=== PATIENT | female | born 1990 | race African-American/Black ===

== ENCOUNTER 2018-03-31 04:06 | Inpatient (IN) | payer MEDICAID ==
[~2018-03-31] VITALS: Ht 160 cm; Wt 119.7 kg
[2018-03-31] VITALS (13 sets, daily range): BP systolic 105–129; BP diastolic 45–82
[~2018-03-31 04:06] MED LIST: DENIES HOME MEDS; SENNSYP
[2018-03-31] MEDS ORDERED: LACTATED RINGER'S 1,000 ML IV SCH (04:18)
[2018-03-31 05:53] LABS: Basophils # (auto) 0 uL; Basophils % (auto) 0.2 % (0.0-2.0); Eosinophils # (auto) 0.1 uL; Eosinophils % (auto) 0.9 % (0.0-7.0); Hematocrit 35.6 % (36.0-46.0); Hemoglobin 12.1 g/dL (12.2-16.2); Lymphocytes # (auto) 1.9 uL; Lymphocytes % (auto) 25.2 % (10.0-50.0); Mean Corpuscular Hemoglobin 30.5 pg (28.0-32.0); Mean Corpuscular Volume 89.7 fL (80.0-100.0); Monocytes # (auto) 0.6 uL; Monocytes % (auto) 8.1 % (0.0-12.0); Neutrophils # (auto) 5.1 uL; Neutrophils % (auto) 65.6 % (37.0-80.0); Nucleated Red Blood Cells % 0.1 %; Platelet Count (auto) 185 10^3/uL (140-450); Red Blood Cells 3.97 10^6/uL (4.0-5.20); Red Cell Distribution Width 13.5 % (11.8-14.3); White Blood Cell 7.7 10^3/uL (4.4-10.8)
[2018-03-31 05:56] LABS: Urine Bacteria NONE SEEN /hpf (None Seen); Urine Blood Negative /uL (Negative); Urine Mucus FEW (None Seen); Urine Specific Gravity 1.026 (1.001-1.035); Urine WBC 1 /hpf (0 - 5)
[2018-03-31 06:08] LABS: INR 0.93 (0.9-1.15); Partial Thromboplastin Time 23.6 sec (23.78-33.04)
[2018-03-31 06:21] LABS: Albumin 2.5 g/dL (3.4-5.0); Calcium 8.4 mg/dL (8.5-10.1)
[2018-03-31 06:23] LABS: Alcohol, Urine < 3.0 mg/dL (0-5); Amphetamine Screen, Urine NEGATIVE (NEGATIVE); Barbiturate Scree,Urine NEGATIVE (NEGATIVE); Benzodiazephine Screen, Urine NEGATIVE (NEGATIVE); Cannabinoid Screen, Urine NEGATIVE (NEGATIVE); Cocaine Screen, Urine NEGATIVE (NEGATIVE); Opiate Scree,Urine NEGATIVE (NEGATIVE); Phencyclidine Screen, Urine NEGATIVE (NEGATIVE)
[2018-03-31 06:25] LABS: BUN/Creatinine Ratio 12.3; Bilirubin, Total 0.4 mg/dL (0.2-1.0); Total Protein 6.1 g/dL (6.4-8.2)
[2018-03-31] MEDS ORDERED: MORPHINE SULF(PF) 0.5MG/ML 10ML VIAL ONE (09:00)
[2018-03-31] MEDS ORDERED: fentaNYL CITRATE 100 MCG/2 ML VL ONE (09:00)
[2018-03-31] MEDS ORDERED: OXYTOCIN 10 UNIT/ML 10ML VIAL ONE (09:02)
[2018-03-31] MEDS ORDERED: ceFAZolin 1GM VL ONE (09:02)
[2018-03-31] MEDS: LACTATED RINGER'S 1,000 ML IV SCH ×2 (10:21→20:44)
[2018-03-31] MEDS ORDERED: NALOXONE HCL 0.4 MG/ML VIAL IV PRN (10:30)
[2018-03-31] MEDS ORDERED: ONDANSETRON HCL 4 MG/2 ML VIAL IV PRN ×2 (10:30)
--- NOTE | 2018-03-31 11:10 | NUR ---
Post Op for LDRP: Received patient from PACU via bed to room 8B, bedside report received from Arabella Lawson RN on stable patient. Patient A/A/Ox4, abdominal binder and bilateral SCD's are in place, IV fluids placed on pump and infusing per order, incisional site dressing drainage previously circled by BUFFING WHEEL OPERATOR Arabella Lawson. Drainage remains within circled boarders. No more noted drainage at this time. Dressing is dry and intact. Liao Catheter to gravity draining clear yellow urine. Incentive Spirometer at bedside and instruction on proper use with return demonstration done by patient.
--- NOTE | 2018-03-31 11:22 | NUR ---
Teaching: Reviewed information in [facility] [employer] booklet with patient. Discussed benefits of and risks associated with not . Discussed different positions, proper latch, feeding cues, and baby-led . Provided information of medication side effects related to . All questions and concerns addressed at this time. Patient verbalized understanding of information.
[2018-03-31] MEDS ORDERED: KETOROLAC TROMETH 30 MG/ML 1ML VIAL IV SCH (12:00)
[2018-03-31] MEDS ORDERED: LACT. RINGERS/OXYTOCIN 20UNITS 1,000 ML IV SCH (12:15)
[2018-03-31] MEDS ORDERED: KETOROLAC TROMETH 30 MG/ML 1ML VIAL IV PRN (12:15)
[2018-03-31] MEDS: diphenhdrAMINE HCL 50 MG/1 ML VL IV PRN ×2 (12:34→18:53)
[2018-03-31] MEDS: KETOROLAC TROMETH 30 MG/ML 1ML VIAL IV PRN ×2 (12:39→18:53)
[2018-03-31] MEDS: HYDROmorphone HCL 2 MG/ML VL IV PRN ×2 (13:22→23:45)
[2018-03-31] MEDS: ceFAZolin 1GM/50ML 50 ML IV SCH (17:26)
--- NOTE | 2018-03-31 21:45 | NUR ---
Ambulation: Liao catheter removed with clear yellow output. Patient OOB with standby assistance by RN. Patient ambulated to bathroom with steady gait. Patient unable to void at this time. [facility] teaching provided with returned demonstration by patient. Clean gown provided and bed linen changed. Patient ambulating hallway with baby in open crib. No distress noted.
[2018-03-31] MEDS ORDERED: PHISODERM TOP SOLN 240ML BTL TOP ONE (22:00)
[2018-04-01] MEDS: ceFAZolin 1GM/50ML 50 ML IV SCH ×2 (00:32→08:37)
[2018-04-01 03:15] VITALS: BP 105/47
[2018-04-01] MEDS: KETOROLAC TROMETH 30 MG/ML 1ML VIAL IV PRN (03:40)
[2018-04-01 04:08] LABS: RPR Non Reactive (Non Reactive)
[2018-04-01] MEDS: diphenhdrAMINE HCL 50 MG/1 ML VL IV PRN (04:29)
[2018-04-01 06:46] LABS: Basophils # (auto) 0 uL; Basophils % (auto) 0.2 % (0.0-2.0); Eosinophils # (auto) 0.1 uL; Hemoglobin 10.8 g/dL (12.2-16.2); Lymphocytes # (auto) 1.4 uL; Lymphocytes % (auto) 14.6 % (10.0-50.0); Mean Corpuscular Hemoglobin 31.1 pg (28.0-32.0); Mean Corpuscular Hgb Conc. 34.9 g/dL (32.0-36.0); Mean Corpuscular Volume 89.1 fL (80.0-100.0); Monocytes # (auto) 0.8 uL; Monocytes % (auto) 7.9 % (0.0-12.0); Neutrophils # (auto) 7.6 uL; Neutrophils % (auto) 76.3 % (37.0-80.0); Platelet Count (auto) 187 10^3/uL (140-450); Red Blood Cells 3.47 10^6/uL (4.0-5.20); Red Cell Distribution Width 13.1 % (11.8-14.3); White Blood Cell 9.9 10^3/uL (4.4-10.8)
[2018-04-01 06:50] VITALS: BP 104/55
[2018-04-01] MEDS ORDERED: BISACODYL 10 MG RECT SUPP PR PRN (07:15)
[2018-04-01] MEDS ORDERED: HYDROcodone-ACET 5/325MG TAB PO PRN (07:15)
[2018-04-01] MEDS: IBUPROFEN 800 MG TAB PO PRN ×2 (07:52→16:58)
[2018-04-01] MEDS: FERROUS SULFATE 325 MG TAB PO SCH ×2 (09:33→21:18)
[2018-04-01] MEDS: DOCUSATE CALCIUM 240 MG CAP PO SCH (09:33)
[2018-04-01] MEDS: DOCUSATE SOD 100 MG CAP PO SCH ×2 (09:33→21:18)
[2018-04-01] MEDS: SIMETHICONE 80 MG CHEWABLE TABLET PO SCH ×3 (10:53→21:18)
[2018-04-01] MEDS: HYDROcodone-ACET 5/325MG TAB PO PRN ×3 (10:54→21:19)
--- NOTE | 2018-04-01 11:00 | NUR ---
IV removal IV DC'd per patient request; clean sterile technique, catheter fully intact. Pressure dressing applied to site. Patient tolerated well.
[2018-04-01 11:30] VITALS: BP 120/60
[2018-04-01 15:00] VITALS: BP 102/60
[2018-04-01 19:14] VITALS: BP 113/64
[2018-04-01 22:56] VITALS: BP 110/62
[2018-04-02 02:58] VITALS: BP 112/67
[2018-04-02] MEDS: HYDROcodone-ACET 5/325MG TAB PO PRN ×2 (03:02→13:48)
[2018-04-02] MEDS: SIMETHICONE 80 MG CHEWABLE TABLET PO SCH ×4 (05:46→21:32)
[2018-04-02] MEDS: IBUPROFEN 800 MG TAB PO PRN ×3 (05:48→23:01)
[2018-04-02 07:30] VITALS: BP 109/63
[2018-04-02] MEDS: DOCUSATE SOD 100 MG CAP PO SCH ×2 (10:00→21:32)
[2018-04-02] MEDS: FERROUS SULFATE 325 MG TAB PO SCH ×2 (10:00→21:32)
[2018-04-02] MEDS: DOCUSATE CALCIUM 240 MG CAP PO SCH (10:00)
[2018-04-02 11:20] VITALS: BP 121/73
[2018-04-02 15:00] VITALS: BP 123/72
[2018-04-02 19:03] VITALS: BP 125/76
[2018-04-02 22:58] VITALS: BP 106/57
[2018-04-03] MEDS: HYDROcodone-ACET 5/325MG TAB PO PRN ×2 (00:03→04:57)
[2018-04-03 03:02] VITALS: BP 113/66
[2018-04-03] MEDS: SIMETHICONE 80 MG CHEWABLE TABLET PO SCH (05:32)
[2018-04-03 07:05] VITALS: BP 111/64
[2018-04-03] MEDS: IBUPROFEN 800 MG TAB PO PRN (08:00)
[2018-04-03] MEDS: DOCUSATE CALCIUM 240 MG CAP PO SCH (09:45)
[2018-04-03] MEDS: FERROUS SULFATE 325 MG TAB PO SCH (09:45)
[2018-04-03] MEDS: DOCUSATE SOD 100 MG CAP PO SCH (09:45)
--- NOTE | 2018-04-03 10:05 | NUR ---
Per Dr Jarvis lyons, hunter removed with clean technique; incision approximated without redness, odor or drainage; steri strips applied to site; pt tolerated well.
--- NOTE | 2018-04-03 10:15 | NUR ---
Discharge: Discharge instructions given as ordered. Pt encouraged to follow up with PRODUCT SPECIALIST as instructed. All questions and concerns addressed. Patient verbalized understanding. Medication reconciliation completed and copy given to patient. All required/requested vaccines given and copies of vaccinations given to patient. Patient encouraged to prepare to depart unit.
--- NOTE | 2018-04-03 10:55 | NUR ---
Discharge: Patient ambulated to vehicle with all personal belongings, accompanied by staff and family member. No distress noted at time of departure, no adverse changes in status since initial assessment.
== END 2018-04-03 10:55 | disposition home or self-care (01) | DRG 540 ==
LOC: LDRP 04:06
PROVIDERS: ADMIT Specialist; ATTEND Specialist
PROC: 0DNW0ZZ Release Peritoneum, Open Approach (ICD-10-PCS; 2018-03-31)
PROC: 10D00Z1 Extraction of Products of Conception, Low, Open Approach (ICD-10-PCS; principal; 2018-03-31 09:06)
DX: O34.211 Maternal care for low transverse scar from previous cesarean delivery (principal); E66.01 Morbid (severe) obesity due to excess calories; O99.214 Obesity complicating childbirth; Z37.0 Single live birth; Z3A.39 39 weeks gestation of pregnancy
CPT/HCPCS: 36415; 59025; 80053; 80307; 81001; 81002; 85025; 85610; 85730; 86592; 86850; 86900; 86901; 96365; 96366; 96375; G0378; J0690; J1885; J2590

== ENCOUNTER 2018-06-27 18:30 | Emergency (ER) | payer MEDICAID ==
[~2018-06-27] VITALS: Ht 160 cm; Wt 122.0 kg
[~2018-06-27 18:30] MED LIST changes: -SENNSYP
[2018-06-27 19:42] LABS: Urine Bacteria FEW /hpf (None Seen); Urine Blood Negative /uL (Negative); Urine Mucus FEW (None Seen); Urine Specific Gravity 1.026 (1.001-1.035); Urine WBC 1 /hpf (0 - 5)
[2018-06-27 19:43] LABS: Basophils # (auto) 0 uL; Basophils % (auto) 0.4 % (0.0-2.0); Eosinophils # (auto) 0.1 uL; Eosinophils % (auto) 1.5 % (0.0-7.0); Hematocrit 38.3 % (36.0-46.0); Hemoglobin 12.7 g/dL (12.2-16.2); Lymphocytes # (auto) 1.9 uL; Lymphocytes % (auto) 19.4 % (10.0-50.0); Mean Corpuscular Hemoglobin 28.8 pg (28.0-32.0); Mean Corpuscular Hgb Conc. 33.1 g/dL (32.0-36.0); Mean Corpuscular Volume 87.1 fL (80.0-100.0); Monocytes # (auto) 0.6 uL; Monocytes % (auto) 6.7 % (0.0-12.0); Nucleated Red Blood Cells % 0.1 %; Platelet Count (auto) 302 10^3/uL (140-450); Red Cell Distribution Width 14.6 % (11.8-14.3); White Blood Cell 9.7 10^3/uL (4.4-10.8)
[2018-06-27 19:56] LABS: Albumin 3.4 g/dL (3.4-5.0); BUN/Creatinine Ratio 8.7; Calcium 8.7 mg/dL (8.5-10.1); Potassium 3.6 mmol/L (3.5-5.1)
[2018-06-27 19:57] LABS: Bilirubin, Total 0.3 mg/dL (0.2-1.0); Total Protein 7.4 g/dL (6.4-8.2)
[2018-06-27 23:02] VITALS: BP 148/73
== END 2018-06-27 23:43 | disposition home or self-care (01) ==
LOC: ER 18:30
DX: N83.202 Unspecified ovarian cyst, left side (principal); Z87.440 Personal history of urinary (tract) infections; Z98.890 Other specified postprocedural states
CPT/HCPCS: 36415; 74176; 80053; 81001; 81025; 85025

== ENCOUNTER → 2021-10-13 | Outpatient (CLI) | payer MEDICAID ==
[~2021-10-13] MED LIST changes: +SUCCINYLCHOLINE CHLORIDE 20 MG/ML 10ML VIAL IV ONE
[2021-10-13 12:31] LABS: Basophils # (auto) 0 10 ^3/uL (0-0.2); Basophils % (auto) 0.4 % (0.0-2.0); Eosinophils # (auto) 0.2 10 ^3/uL (0-0.8); Eosinophils % (auto) 3.1 % (0.0-7.0); Hematocrit 37.8 % (36.0-46.0); Hemoglobin 12.3 g/dL (12.2-16.2); Lymphocytes # (auto) 2.8 10 ^3/uL (0.4-5.4); Lymphocytes % (auto) 38.4 % (10.0-50.0); Mean Corpuscular Hemoglobin 27.3 pg (28.0-32.0); Mean Corpuscular Hgb Conc. 32.5 g/dL (32.0-36.0); Mean Corpuscular Volume 84.1 fL (80.0-100.0); Monocytes # (auto) 0.5 10 ^3/uL (0-1.3); Monocytes % (auto) 6.8 % (0.0-12.0); Neutrophils # (auto) 3.7 10 ^3/uL (1.6-8.6); Neutrophils % (auto) 51.3 % (37.0-80.0); Red Cell Distribution Width 17.2 % (11.8-14.3); White Blood Cell 7.2 10^3/uL (4.4-10.8)
[2021-10-13 12:49] LABS: Cannabinoid Screen, Urine POSITIVE (NEGATIVE)
[2021-10-13 13:03] LABS: Alcohol, Urine < 3.0 mg/dL (0-10); Amphetamine Screen, Urine NEGATIVE (NEGATIVE); Barbiturate Scree,Urine NEGATIVE (NEGATIVE); Benzodiazephine Screen, Urine NEGATIVE (NEGATIVE); Cocaine Screen, Urine NEGATIVE (NEGATIVE); Opiate Scree,Urine NEGATIVE (NEGATIVE); Phencyclidine Screen, Urine NEGATIVE (NEGATIVE)
[2021-10-14 05:06] LABS: RPR Non Reactive (Non Reactive)
== END | disposition home or self-care (01) ==
LOC: LAB 10:22
PROVIDERS: ATTEND Obstetrics & Gynecology
DX: Z34.80 Encounter for supervision of other normal pregnancy, unspecified trimester (principal); N39.0 Urinary tract infection, site not specified; Z31.430 Encounter of female for testing for genetic disease carrier status for procreative management; Z36.0 Encounter for antenatal screening for chromosomal anomalies; Z3A.00 Weeks of gestation of pregnancy not specified
CPT/HCPCS: 36415; 80307; 83021; 83036; 84112; 84144; 84702; 85025; 85660; 86592; 86703; 86762; 86850; 86900; 86901; 87086; 87088; 87186; 87340; 87491; 87591; J0330

== ENCOUNTER 2021-10-18 04:01 | Emergency (ER) | payer MEDICAID ==
[~2021-10-18] VITALS: Ht 160 cm; Wt 115.7 kg
[~2021-10-18 04:01] MED LIST changes: -SUCCINYLCHOLINE CHLORIDE 20 MG/ML 10ML VIAL IV ONE
[2021-10-18 07:29] VITALS: BP 169/107
== END 2021-10-18 07:30 | disposition home or self-care (01) ==
LOC: ER 04:01
DX: O20.0 Threatened abortion (principal); Z3A.01 Less than 8 weeks gestation of pregnancy
CPT/HCPCS: 36415; 76801; 76817; 84702

== ENCOUNTER → 2021-10-20 | Outpatient (CLI) | payer MEDICAID | END | disposition home or self-care (01) | LOC: LAB 10:43 | PROVIDERS: ATTEND Obstetrics & Gynecology | DX: Z34.80 Encounter for supervision of other normal pregnancy, unspecified trimester (principal) | CPT/HCPCS: 36415; 83036; 84702 ==

== ENCOUNTER → 2022-04-05 | Emergency (ER) | payer MEDICAID | END | disposition left against medical advice (07) | LOC: ER 19:44 | DX: R10.9 Unspecified abdominal pain (principal); Z53.21 Procedure and treatment not carried out due to patient leaving prior to being seen by health care provider ==